=== PATIENT | female | born 1955 | race Caucasian/White ===

== ENCOUNTER 2023-04-25 08:23 | Inpatient (IN) ==
[2023-04-25] MEDS ORDERED: Senna TAB 8.6 mg TAB PO PRN (14:36)
[2023-04-25] MEDS ORDERED: Magnesium Hydroxide LIQ 30 ML UDC PO PRN (14:36)
[2023-04-25] MEDS ORDERED: HYDROcodone/ACETAMIN 5/325 mg TAB PO PRN (14:52)
[2023-04-25] MEDS: HYDROcodone/ACETAMIN 5/325 mg TAB PO PRN ×2 (15:09→19:10)
[2023-04-25] MEDS ORDERED: Albuterol HFA INHALER 8 gm MDI INH PRN (15:28)
[2023-04-25] MEDS: Venlafaxine 25 mg TAB (NF) PO SCH (21:56)
[2023-04-25] MEDS: Heparin 5000 UNITS/ML 1 mL VIAL SUBCUT SCH (22:00)
[2023-04-26] MEDS: Heparin 5000 UNITS/ML 1 mL VIAL SUBCUT SCH ×3 (06:07→21:28)
[2023-04-26 07:09] LABS: ABS Basophils 0.1 10^3/uL (0.0-0.1); ABS Eosinophils 0.1 10^3/uL (0.0-0.5); ABS Lymphocytes 1.4 10^3/uL (1.0-4.8); ABS Monocytes 0.6 10^3/uL (0.0-0.9); ABS Neutrophils 5.7 10^3/uL (1.5-7.6); Eosinophil % 1.1 %; Hematocrit 34.2 % (35-45); Hemoglobin 11.5 g/dL (11.5-14.3); Lymphocyte % 17.6 %; Mean Corpuscular Hemoglobin 31.7 pg (27-33); Mean Corpuscular Hgb Conc 33.7 g/dL (31-36); Mean Corpuscular Volume 94.1 fL (80-97); Mean Platelet Volume 7.2 fL (7.5-11.2); Platelet Count 484 10^3/uL (150-450); Red Blood Count 3.63 10^6/uL (3.63-4.92); Red Cell Distribution Width 15.4 % (12-17); White Blood Count 7.9 10^3/uL (3.8-11.8)
[2023-04-26 08:02] LABS: Albumin 4.1 g/dL (3.2-5.2); Albumin/Globulin Ratio 1.4 (1-3); Calcium 9.4 mg/dL (8.6-10.3); Creatinine, Serum 0.88 mg/dL (0.51-0.95); Globulin 2.9 g/dL (2-4); Potassium 3.2 mmol/L (3.5-5.0); Total Bilirubin 0.5 mg/dL (0.2-1.0); eGFR CKD-EPI 72.9 (>60)
[2023-04-26] MEDS: Mometasone/Formoter 200/5 MDI INH SCH ×2 (09:09→21:25)
[2023-04-26] MEDS: Cholecalciferol (VIT D3) 1,000 unit TAB PO SCH (09:10)
[2023-04-26] MEDS: Venlafaxine 25 mg TAB (NF) PO SCH ×2 (09:11→21:26)
[2023-04-26] MEDS: BREXPIPRAZOLE 4 MG PO SCH (14:24)
[2023-04-26] MEDS: Potassium Chlor 20 meq TAB.ER PO SCH (21:26)
[2023-04-26] MEDS: Megestrol 400 MG/10 ML SUSP PO SCH (21:27)
[2023-04-27] MEDS: Heparin 5000 UNITS/ML 1 mL VIAL SUBCUT SCH ×3 (06:17→21:57)
[2023-04-27] MEDS: Cholecalciferol (VIT D3) 1,000 unit TAB PO SCH (08:20)
[2023-04-27] MEDS: Venlafaxine 25 mg TAB (NF) PO SCH ×2 (08:21→21:58)
[2023-04-27] MEDS: Megestrol 400 MG/10 ML SUSP PO SCH ×2 (08:21→22:00)
[2023-04-27] MEDS: Potassium Chlor 20 meq TAB.ER PO SCH ×2 (08:21→21:57)
[2023-04-27] MEDS: Mometasone/Formoter 200/5 MDI INH SCH ×2 (08:32→18:50)
[2023-04-27] MEDS: BREXPIPRAZOLE 4 MG PO SCH (13:46)
[2023-04-28] MEDS: Heparin 5000 UNITS/ML 1 mL VIAL SUBCUT SCH ×3 (05:16→20:56)
[2023-04-28] MEDS: Mometasone/Formoter 200/5 MDI INH SCH ×2 (05:30→20:55)
[2023-04-28 07:16] LABS: Calcium 9.7 mg/dL (8.6-10.3); Creatinine, Serum 0.83 mg/dL (0.51-0.95); Potassium 3.9 mmol/L (3.5-5.0); eGFR CKD-EPI 78.2 (>60)
[2023-04-28] MEDS: Potassium Chlor 20 meq TAB.ER PO SCH (08:07)
[2023-04-28] MEDS: Cholecalciferol (VIT D3) 1,000 unit TAB PO SCH (08:07)
[2023-04-28] MEDS: Venlafaxine 25 mg TAB (NF) PO SCH ×2 (08:09→20:56)
[2023-04-28] MEDS: Megestrol 400 MG/10 ML SUSP PO SCH ×2 (08:10→20:56)
[2023-04-28] MEDS: BREXPIPRAZOLE 4 MG PO SCH (13:26)
[2023-04-29] MEDS: Heparin 5000 UNITS/ML 1 mL VIAL SUBCUT SCH ×3 (06:43→21:24)
[2023-04-29] MEDS: Mometasone/Formoter 200/5 MDI INH SCH ×2 (06:50→19:31)
[2023-04-29] MEDS: Venlafaxine 25 mg TAB (NF) PO SCH ×2 (07:55→21:25)
[2023-04-29] MEDS: Cholecalciferol (VIT D3) 1,000 unit TAB PO SCH (07:56)
[2023-04-29] MEDS: Megestrol 400 MG/10 ML SUSP PO SCH ×2 (07:56→21:23)
[2023-04-29] MEDS: BREXPIPRAZOLE 4 MG PO SCH (14:32)
[2023-04-30] MEDS: Heparin 5000 UNITS/ML 1 mL VIAL SUBCUT SCH ×3 (05:55→21:31)
[2023-04-30] MEDS: Megestrol 400 MG/10 ML SUSP PO SCH ×2 (10:01→21:33)
[2023-04-30] MEDS: Venlafaxine 25 mg TAB (NF) PO SCH ×2 (10:01→21:31)
[2023-04-30] MEDS: Cholecalciferol (VIT D3) 1,000 unit TAB PO SCH (10:01)
[2023-04-30] MEDS: Mometasone/Formoter 200/5 MDI INH SCH ×2 (10:05→21:15)
[2023-04-30] MEDS: BREXPIPRAZOLE 4 MG PO SCH (14:18)
[2023-05-01] MEDS: Heparin 5000 UNITS/ML 1 mL VIAL SUBCUT SCH ×3 (05:59→22:09)
[2023-05-01] MEDS: Mometasone/Formoter 200/5 MDI INH SCH ×2 (08:55→20:21)
[2023-05-01] MEDS: Megestrol 400 MG/10 ML SUSP PO SCH ×2 (09:02→20:21)
[2023-05-01] MEDS: Venlafaxine 25 mg TAB (NF) PO SCH ×2 (09:02→20:22)
[2023-05-01] MEDS: Cholecalciferol (VIT D3) 1,000 unit TAB PO SCH (09:02)
[2023-05-01] MEDS: BREXPIPRAZOLE 4 MG PO SCH (12:50)
[2023-05-02] MEDS: Mometasone/Formoter 200/5 MDI INH SCH ×2 (05:25→20:27)
[2023-05-02] MEDS: Heparin 5000 UNITS/ML 1 mL VIAL SUBCUT SCH ×3 (05:28→20:30)
[2023-05-02] MEDS: Venlafaxine 25 mg TAB (NF) PO SCH ×2 (08:05→20:29)
[2023-05-02] MEDS: Cholecalciferol (VIT D3) 1,000 unit TAB PO SCH (08:05)
[2023-05-02] MEDS: Megestrol 400 MG/10 ML SUSP PO SCH ×2 (08:06→20:29)
[2023-05-02] MEDS: BREXPIPRAZOLE 4 MG PO SCH (12:40)
[2023-05-03] MEDS: Heparin 5000 UNITS/ML 1 mL VIAL SUBCUT SCH ×3 (06:24→23:52)
[2023-05-03] MEDS: Mometasone/Formoter 200/5 MDI INH SCH ×2 (06:48→18:44)
[2023-05-03 07:10] LABS: ABS Basophils 0.1 10^3/uL (0.0-0.1); ABS Eosinophils 0.1 10^3/uL (0.0-0.5); ABS Lymphocytes 1.4 10^3/uL (1.0-4.8); ABS Monocytes 0.6 10^3/uL (0.0-0.9); ABS Neutrophils 4.4 10^3/uL (1.5-7.6); Eosinophil % 0.9 %; Hematocrit 27.8 % (35-45); Hemoglobin 9.6 g/dL (11.5-14.3); Lymphocyte % 21.4 %; Mean Corpuscular Hgb Conc 34.7 g/dL (31-36); Mean Corpuscular Volume 95.1 fL (80-97); Mean Platelet Volume 7.2 fL (7.5-11.2); Platelet Count 316 10^3/uL (150-450); Red Blood Count 2.92 10^6/uL (3.63-4.92); Red Cell Distribution Width 15.4 % (12-17); White Blood Count 6.5 10^3/uL (3.8-11.8)
[2023-05-03 07:29] LABS: Albumin 3.7 g/dL (3.2-5.2); Albumin/Globulin Ratio 1.5 (1-3); Calcium 9.2 mg/dL (8.6-10.3); Creatinine, Serum 0.89 mg/dL (0.51-0.95); Globulin 2.5 g/dL (2-4); Potassium 3.8 mmol/L (3.5-5.0); Total Bilirubin 0.2 mg/dL (0.2-1.0); Total Protein 6.2 g/dL (6.4-8.9); eGFR CKD-EPI 71.9 (>60)
[2023-05-03] MEDS: Cholecalciferol (VIT D3) 1,000 unit TAB PO SCH (08:24)
[2023-05-03] MEDS: Megestrol 400 MG/10 ML SUSP PO SCH ×2 (08:24→20:30)
[2023-05-03] MEDS: Venlafaxine 25 mg TAB (NF) PO SCH ×2 (08:25→20:30)
[2023-05-03] MEDS: BREXPIPRAZOLE 4 MG PO SCH (15:09)
[2023-05-04] MEDS: Heparin 5000 UNITS/ML 1 mL VIAL SUBCUT SCH (05:48)
[2023-05-04 05:52] VITALS: BP 124/80
[2023-05-04] MEDS: Megestrol 400 MG/10 ML SUSP PO SCH (08:30)
[2023-05-04] MEDS: Cholecalciferol (VIT D3) 1,000 unit TAB PO SCH (08:31)
[2023-05-04] MEDS: Venlafaxine 25 mg TAB (NF) PO SCH (08:31)
[2023-05-04] MEDS: Mometasone/Formoter 200/5 MDI INH SCH (08:33)
== END 2023-05-04 10:20 | DRG 860 ==
LOC: PMRU 12:36
PROVIDERS: ADMIT Physical Medicine & Rehabilitation; ATTEND Physical Medicine & Rehabilitation